=== PATIENT | male | born 1965 | race Caucasian/White ===

== ENCOUNTER 2020-07-31 15:48 | Observation (INO) | payer BC, MEDICARE ==
[~2020-07-31] VITALS: Ht 170.2 cm; Wt 129.7 kg
[~2020-07-31 15:48] MED LIST: GLUCOPHAGE850 MG PO; NEXIUM20 MG PO; SIMVASTATIN10 MG PO
[2020-07-31] MEDS ORDERED: ASPIRIN 81 MG CHEW TAB PO STA (17:07)
[2020-07-31] MEDS ORDERED: ASPIRIN 81 MG CHEW TAB PO ONE (17:15)
[2020-07-31 17:36] LABS: BASOPHILS # (AUTO) 0.1 (0.0-0.1); BASOPHILS % 0.8 % (0.0-1.0); EOSINOPHILS # (AUTO) 0.4 (0.0-0.4); EOSINOPHILS % 5.7 % (0.0-6.0); HEMATOCRIT 30.5 % (38.2-49.6); HEMOGLOBIN 10.3 g/dL (14.0-18.0); LYMPHOCYTES # (AUTO) 1.1 (1.0-3.2); LYMPHOCYTES % 14.3 % (18.0-39.1); MEAN CORPUSCULAR HEMOGLOBIN 29.1 pg (28-32); MEAN CORPUSCULAR HGB CONC 33.8 g/dL (31-35); MEAN CORPUSCULAR VOLUME 86.2 fL (81-99); MONOCYTES # (AUTO) 0.6 (0.2-0.8); MONOCYTES % 8.4 % (4.4-11.3); NEUTROPHILS # (AUTO) 5.2 (2.1-6.9); NEUTROPHILS % 68.2 % (38.7-80.0); PLATELET COUNT 145 x10e3/uL (140-360); RED BLOOD COUNT 3.54 x10e6/uL (4.3-5.7); RED CELL DISTRIBUTION WIDTH 14.8 % (11.7-14.4)
[2020-07-31 17:40] LABS: INR 0.87; PROTHROMBIN TIME 12.4 seconds (11.9-14.5)
[2020-07-31 17:41] LABS: PARTIAL THROMBOPLASTIN TIME 24.6 seconds (23.8-35.5)
[2020-07-31 17:47] LABS: ALBUMIN 3.2 g/dL (3.5-5.0); ALBUMIN/GLOBULIN RATIO 1.1 (0.8-2.0); ANION GAP 15.9 mmol/L (8-16); CALCIUM 8.7 mg/dL (8.4-10.2); CREATININE, SERUM 4.8 mg/dL (0.72-1.25); POTASSIUM 4.9 mmol/L (3.5-5.1)
[2020-07-31 17:54] LABS: CREATINE KINASE MB 7.2 ng/mL (0-5.0)
[2020-07-31] MEDS ORDERED: INSULIN REGULAR, HUMAN 100 UNIT/1 ML 3ML VIAL SQ ONE (18:45)
[2020-07-31 19:56] LABS: CREATINE KINASE MB 6.5 ng/mL (0-5.0)
[2020-07-31 21:38] VITALS: BP 185/97
[2020-07-31] MEDS ORDERED: MOVE FREE ULTR1 EAC1 (22:28)
[2020-07-31] MEDS ORDERED: INSULIN AS100 UNIT/2 SC (22:28)
[2020-07-31] MEDS ORDERED: GABAPENTIN300 MG PO (22:28)
[2020-07-31] MEDS ORDERED: AMLODIPINE BESY10 MG PO (22:28)
[2020-07-31] MEDS ORDERED: TRADJENTA5 MG PO (22:28)
[2020-07-31] MEDS ORDERED: ASPIRIN81 MG PO (22:28)
[2020-07-31] MEDS ORDERED: METOPROLOL TART25 MG PO (22:28)
[2020-07-31] MEDS ORDERED: LANTUS 3ML100 UNITS/ SQ (22:28)
[2020-07-31] MEDS ORDERED: AMITRIPTYLINE H10 MG PO (22:28)
[2020-07-31] MEDS ORDERED: ATORVASTATIN CA20 MG PO (22:28)
[2020-07-31] MEDS ORDERED: OMEPRAZOLE40 MG PO (22:28)
[2020-07-31] MEDS ORDERED: FLOMAX0.4 MG PO (22:28)
[2020-07-31] MEDS ORDERED: FUROSEMIDE40 MG PO (22:28)
[2020-07-31] MEDS ORDERED: HYDRALAZINE HC100 MG PO (22:28)
[2020-07-31] MEDS ORDERED: FINASTERIDE5 MG PO (22:28)
[2020-07-31 23:00] VITALS: BP 185/97
[2020-07-31 23:16] VITALS: BP 137/67
[2020-08-01 01:31] VITALS: BP 131/85
[2020-08-01 05:19] VITALS: BP 145/86
[2020-08-01 06:09] LABS: CHOL/HDL RATIO 5.8 (3.9-4.7)
[2020-08-01 07:49] LABS: CREATINE KINASE MB 6.3 ng/mL (0-5.0)
[2020-08-01 08:00] VITALS: BP 143/75
[2020-08-01] MEDS ORDERED: DEXTROSE 50% SYRINGE 50 ML IV PRN (08:00)
[2020-08-01] MEDS: ALBUTEROL/IPRATROPIUM 3 ML NEB NEB SCH ×2 (08:30→13:00)
[2020-08-01] MEDS: METOPROLOL TARTRATE 25 MG TAB PO SCH ×2 (09:00→16:45)
[2020-08-01] MEDS ORDERED: LORATADINE 10 MG TAB PO SCH (09:00)
[2020-08-01] MEDS ORDERED: TAMSULOSIN HCL 0.4 MG CAP PO SCH (09:00)
[2020-08-01] MEDS ORDERED: ASPIRIN 81 MG CHEW TAB PO SCH (09:00)
[2020-08-01] MEDS ORDERED: AMLODIPINE BESYLATE 10 MG TAB PO SCH (09:00)
[2020-08-01] MEDS ORDERED: PANTOPRAZOLE SOD 40 MG TABEC PO SCH (09:00)
[2020-08-01] MEDS ORDERED: FINASTERIDE 5 MG TAB PO SCH (09:00)
[2020-08-01 09:14] VITALS: BP 143/75
[2020-08-01] MEDS: FLUTICASONE PROPIONATE NASAL SPRAY NS SCH ×2 (10:00→18:05)
[2020-08-01] MEDS: HYDRALAZINE HCL 100 MG TABLET PO SCH ×2 (10:00→14:17)
[2020-08-01] MEDS ORDERED: LINAGLIPTIN PO SCH (10:30)
[2020-08-01] MEDS ORDERED: INSULIN GLARGINE 100 UNITS/ML VIAL SQ SCH (11:00)
[2020-08-01] MEDS: GABAPENTIN 300 MG CAP PO SCH ×2 (11:02→18:05)
[2020-08-01] MEDS: BENZONATATE 100 MG CAP PO SCH ×2 (11:02→14:17)
[2020-08-01] MEDS: FUROSEMIDE 20 MG TAB PO SCH ×2 (11:02→14:17)
[2020-08-01] MEDS: INSULIN LISPRO 100 UNIT/1 ML 3ML VIAL SQ SCH ×4 (11:21→16:30)
[2020-08-01] MEDS ORDERED: ALBUMIN 25% 12.5GM 0.25 GM/ML BTL IV PRN (11:45)
[2020-08-01] MEDS ORDERED: HEPARIN SOD (PORCINE) 1000 UNIT/ML SDV IV PRN (11:45)
[2020-08-01] MEDS ORDERED: MANNITOL 25% 12.5GM/50 ML VIAL IV PRN (11:45)
[2020-08-01] MEDS ORDERED: SODIUM CHLORIDE 0.9% 1000ML 2,000 ML IV PRN (11:45)
[2020-08-01] MEDS ORDERED: SODIUM CHLORIDE 0.9% 250ML 500 ML IV PRN (11:45)
[2020-08-01 11:47] VITALS: BP 154/79
[2020-08-01] MEDS: SEVELAMER CARBONATE 800 MG TAB PO SCH ×2 (12:46→18:05)
[2020-08-01 13:45] LABS: CREATINE KINASE MB 6.2 ng/mL (0-5.0)
[2020-08-01 15:11] VITALS: BP 103/71
[2020-08-01] MEDS ORDERED: TESSALON PERLE100 MG PO (17:42)
[2020-08-01] MEDS ORDERED: CLARITIN10 MG PO (17:42)
[2020-08-01] MEDS ORDERED: FLONASE ALLERG9.9 ML INH (17:42)
[2020-08-01] MEDS ORDERED: MOBIC7.5 MG PO (17:43)
[2020-08-01] MEDS ORDERED: PROAIR HFA INH8.5 GM IH (17:45)
[2020-08-01] MEDS ORDERED: ATORVASTATIN 20 MG TAB PO SCH (21:00)
[2020-08-01] MEDS ORDERED: AMITRIPTYLINE HCL 10 MG TAB PO SCH (21:00)
== END 2020-08-01 18:50 | disposition home or self-care (01) ==
LOC: ER 17:28 → ERHOLD 18:49 → MED/SURG 20:38
PROVIDERS: ADMIT Internal Medicine; ATTEND Internal Medicine
DX: J98.8 Other specified respiratory disorders (principal); G47.33 Obstructive sleep apnea (adult) (pediatric); I25.10 Atherosclerotic heart disease of native coronary artery without angina pectoris; I12.0 Hypertensive chronic kidney disease with stage 5 chronic kidney disease or end stage renal disease; E11.22 Type 2 diabetes mellitus with diabetic chronic kidney disease; N18.6 End stage renal disease; Z99.2 Dependence on renal dialysis; N40.0 Benign prostatic hyperplasia without lower urinary tract symptoms; E11.319 Type 2 diabetes mellitus with unspecified diabetic retinopathy without macular edema; E11.40 Type 2 diabetes mellitus with diabetic neuropathy, unspecified; Z79.899 Other long term (current) drug therapy; Z20.822 Contact with and (suspected) exposure to COVID-19
CPT/HCPCS: 36415 ×2; 71045; 80053; 80061; 82550 ×2; 82553 ×2; 82948; 83880; 84484 ×2; 85025; 85610; 85730; 86705; 86706; 87340; 93005; 99284; G0378 ×2; J1644; J1815; J7030; S0164; U0002

== ENCOUNTER 2020-08-09 00:26 | Observation (INO) | payer MEDICARE ==
[~2020-08-09] VITALS: Ht 170.2 cm; Wt 129.7 kg
[~2020-08-09 00:26] MED LIST changes: +AMITRIPTYLINE H10 MG PO; +AMLODIPINE BESY10 MG PO; +ASPIRIN81 MG PO; +ATORVASTATIN CA20 MG PO; +CLARITIN10 MG PO; +FINASTERIDE5 MG PO; +FLOMAX0.4 MG PO; +FLONASE ALLERG9.9 ML INH; +FUROSEMIDE40 MG PO; +GABAPENTIN300 MG PO; +HYDRALAZINE HC100 MG PO; +INSULIN AS100 UNIT/2 SC; +LANTUS 3ML100 UNITS/ SQ; +METOPROLOL TART25 MG PO; +MOBIC7.5 MG PO; +MOVE FREE ULTR1 EAC1; +OMEPRAZOLE40 MG PO; +PROAIR HFA INH8.5 GM IH; +TESSALON PERLE100 MG PO; +TRADJENTA5 MG PO
[2020-08-09 00:50] LABS: BASOPHILS # (AUTO) 0.1 (0.0-0.1); BASOPHILS % 0.5 % (0.0-1.0); EOSINOPHILS # (AUTO) 0.1 (0.0-0.4); EOSINOPHILS % 1.1 % (0.0-6.0); HEMATOCRIT 27.8 % (38.2-49.6); HEMOGLOBIN 9.5 g/dL (14.0-18.0); LYMPHOCYTES # (AUTO) 0.8 (1.0-3.2); MEAN CORPUSCULAR HEMOGLOBIN 29.7 pg (28-32); MEAN CORPUSCULAR HGB CONC 34.2 g/dL (31-35); MEAN CORPUSCULAR VOLUME 86.9 fL (81-99); MONOCYTES # (AUTO) 0.7 (0.2-0.8); MONOCYTES % 5.7 % (4.4-11.3); NEUTROPHILS # (AUTO) 10.8 (2.1-6.9); NEUTROPHILS % 86.3 % (38.7-80.0); PLATELET COUNT 124 x10e3/uL (140-360); RED CELL DISTRIBUTION WIDTH 15.2 % (11.7-14.4)
[2020-08-09 01:07] LABS: ALBUMIN 3.1 g/dL (3.5-5.0); ALBUMIN/GLOBULIN RATIO 1.2 (0.8-2.0); ANION GAP 17.4 mmol/L (8-16); CALCIUM 7.9 mg/dL (8.4-10.2); CREATININE, SERUM 4.93 mg/dL (0.72-1.25); POTASSIUM 4.4 mmol/L (3.5-5.1)
[2020-08-09 01:14] LABS: CREATINE KINASE MB 9.7 ng/mL (0-5.0)
[2020-08-09] MEDS ORDERED: HYDRALAZINE HCL 20 MG/ML VIAL IV PRN (03:00)
[2020-08-09] MEDS ORDERED: DEXTROSE 50% SYRINGE 50 ML IV PRN ×2 (03:00→08:45)
[2020-08-09] MEDS ORDERED: ONDANSETRON HCL INJ 2MG/ML 2ML 2 MG/ML VIAL IV PRN (03:00)
[2020-08-09] MEDS ORDERED: ASPIRIN 81 MG CHEW TAB PO ONE (03:00)
[2020-08-09] MEDS ORDERED: FUROSEMIDE INJ 10 MG/ML 4 ML VIAL IV ONE (03:00)
[2020-08-09] MEDS ORDERED: SODIUM CHLORIDE FLUSH 10 ML SYR INJ PRN (03:00)
[2020-08-09] MEDS ORDERED: INSULIN REGULAR, HUMAN 100 UNIT/1 ML 3ML VIAL SQ SCH (07:30)
[2020-08-09] MEDS ORDERED: ALBUTEROL SULFATE HFA 8GM INHALATION AEROSOL INH PRN (08:45)
[2020-08-09] MEDS ORDERED: BENZONATATE 100 MG CAP PO PRN (08:45)
[2020-08-09 08:51] LABS: CREATINE KINASE MB 8.7 ng/mL (0-5.0)
[2020-08-09] MEDS: FLUTICASONE PROPIONATE NASAL SPRAY NS SCH ×2 (09:00→17:00)
[2020-08-09] MEDS: TAMSULOSIN HCL 0.4 MG CAP PO SCH (09:22)
[2020-08-09] MEDS: LORATADINE 10 MG TAB PO SCH (09:22)
[2020-08-09] MEDS: FUROSEMIDE 20 MG TAB PO SCH ×3 (09:22→21:40)
[2020-08-09] MEDS: ASPIRIN 81 MG CHEW TAB PO SCH (09:22)
[2020-08-09] MEDS: HYDRALAZINE HCL 100 MG TABLET PO SCH ×3 (09:22→21:40)
[2020-08-09] MEDS: AMLODIPINE BESYLATE 10 MG TAB PO SCH (09:23)
[2020-08-09] MEDS: FINASTERIDE 5 MG TAB PO SCH (09:23)
[2020-08-09] MEDS: METOPROLOL TARTRATE 25 MG TAB PO SCH ×2 (09:23→17:29)
[2020-08-09] MEDS: GABAPENTIN 300 MG CAP PO SCH ×2 (09:23→17:28)
[2020-08-09] MEDS: PANTOPRAZOLE SOD 40 MG TABEC PO SCH (09:23)
[2020-08-09] MEDS ORDERED: SODIUM CHLORIDE 0.9% 1000ML 1,000 ML ONE (11:03)
[2020-08-09] MEDS ORDERED: HEPARIN SOD (PORCINE) 5,000 UNIT/ML VIAL ONE (11:04)
[2020-08-09] MEDS: INSULIN LISPRO 100 UNIT/1 ML 3ML VIAL SQ SCH ×3 (11:30→21:39)
[2020-08-09 13:59] LABS: CREATINE KINASE MB 9.5 ng/mL (0-5.0)
[2020-08-09 16:49] VITALS: BP 108/62
[2020-08-09] MEDS: INSULIN GLARGINE 100 UNITS/ML VIAL SQ SCH (17:40)
[2020-08-09 18:31] VITALS: BP 108/62
[2020-08-09 18:32] VITALS: BP 108/62
[2020-08-09 20:00] VITALS: BP 121/71
[2020-08-09] MEDS ORDERED: ATORVASTATIN 20 MG TAB PO SCH (21:00)
[2020-08-09] MEDS ORDERED: AMITRIPTYLINE HCL 10 MG TAB PO SCH (21:00)
[2020-08-10] VITALS: BP 123/57
[2020-08-10 04:54] LABS: BASOPHILS # (AUTO) 0.1 (0.0-0.1); BASOPHILS % 1.1 % (0.0-1.0); EOSINOPHILS # (AUTO) 0.2 (0.0-0.4); HEMOGLOBIN 8.8 g/dL (14.0-18.0); LYMPHOCYTES % 17.7 % (18.0-39.1); MEAN CORPUSCULAR HEMOGLOBIN 29.3 pg (28-32); MEAN CORPUSCULAR HGB CONC 33.8 g/dL (31-35); MEAN CORPUSCULAR VOLUME 86.7 fL (81-99); MONOCYTES # (AUTO) 0.6 (0.2-0.8); NEUTROPHILS # (AUTO) 3.8 (2.1-6.9); NEUTROPHILS % 65.7 % (38.7-80.0); PLATELET COUNT 124 x10e3/uL (140-360)
[2020-08-10 05:21] LABS: ALBUMIN 2.7 g/dL (3.5-5.0); ALBUMIN/GLOBULIN RATIO 1.1 (0.8-2.0); ANION GAP 13.1 mmol/L (8-16); CALCIUM 7.5 mg/dL (8.4-10.2); CREATININE, SERUM 3.44 mg/dL (0.72-1.25); POTASSIUM 4.1 mmol/L (3.5-5.1)
[2020-08-10 08:20] VITALS: BP 111/45
[2020-08-10 08:54] VITALS: BP 111/45
[2020-08-10] MEDS: PANTOPRAZOLE SOD 40 MG TABEC PO SCH (08:57)
[2020-08-10] MEDS: TAMSULOSIN HCL 0.4 MG CAP PO SCH (08:58)
[2020-08-10] MEDS: GABAPENTIN 300 MG CAP PO SCH (08:58)
[2020-08-10] MEDS: FINASTERIDE 5 MG TAB PO SCH (08:58)
[2020-08-10] MEDS: ASPIRIN 81 MG CHEW TAB PO SCH (08:58)
[2020-08-10] MEDS: LORATADINE 10 MG TAB PO SCH (08:58)
[2020-08-10] MEDS: FUROSEMIDE 20 MG TAB PO SCH ×2 (08:59→13:21)
[2020-08-10] MEDS: METOPROLOL TARTRATE 25 MG TAB PO SCH (08:59)
[2020-08-10] MEDS: HYDRALAZINE HCL 100 MG TABLET PO SCH ×2 (09:03→13:21)
[2020-08-10] MEDS: AMLODIPINE BESYLATE 10 MG TAB PO SCH (09:04)
[2020-08-10] MEDS: FLUTICASONE PROPIONATE NASAL SPRAY NS SCH (09:07)
[2020-08-10] MEDS: INSULIN GLARGINE 100 UNITS/ML VIAL SQ SCH (09:08)
[2020-08-10] MEDS: INSULIN LISPRO 100 UNIT/1 ML 3ML VIAL SQ SCH ×2 (09:08→11:30)
[2020-08-10 11:53] VITALS: BP 129/58
[2020-08-11] MEDS ORDERED: GABAPENTIN 300 MG CAP PO SCH (09:00)
== END 2020-08-10 16:00 | disposition home or self-care (01) ==
LOC: ER 00:42 → ERHOLD 03:49 → MED/SURG3 16:20
PROVIDERS: ADMIT Internal Medicine; ATTEND Internal Medicine
DX: E87.70 Fluid overload, unspecified (principal); E11.22 Type 2 diabetes mellitus with diabetic chronic kidney disease; I13.2 Hypertensive heart and chronic kidney disease with heart failure and with stage 5 chronic kidney disease, or end stage renal disease; I50.9 Heart failure, unspecified; N18.6 End stage renal disease; Z99.2 Dependence on renal dialysis; Z91.15 Patient's noncompliance with renal dialysis; E78.5 Hyperlipidemia, unspecified; Z90.49 Acquired absence of other specified parts of digestive tract; E87.2 Acidosis; G47.33 Obstructive sleep apnea (adult) (pediatric); E11.42 Type 2 diabetes mellitus with diabetic polyneuropathy
CPT/HCPCS: 36415 ×2; 71045; 80053 ×2; 82550; 82553; 82948 ×2; 83880; 84484; 85025 ×2; 90935; 93005; 99285; G0378 ×2; J1644; J1815; J1817; J1940; J7030; S0164; U0002